=== PATIENT | male | born 1990 | race Caucasian/White ===

== ENCOUNTER 2016-10-17 21:23 | Emergency (ER) | payer BC ==
[~2016-10-17] VITALS: Ht 175.3 cm; Wt 70.3 kg
[2016-10-17] MEDS ORDERED: PANTOPRAZOLE SO40 MG PO (21:39)
--- OUTSIDE RECORDS SUMMARY | 2016-10-17 21:44 | External Medical Summary Rpt ---
Demographics Preferred Language Pashto Marital Status Unknown Oriental Orthodox Affiliation Unknown Race Unknown Ethnic Group Unknown Author Author , BEE GAMBOA Address Unknown Phone Immunization Unable to retrieve immunization data due to connection failure with Immunization Registry. Please try again later.
--- OUTSIDE RECORDS SUMMARY | 2016-10-17 21:44 | External Medical Summary Rpt ---
Author Author MAGGIE Address Unknown Phone [email or web address] Purpose Continuity of Care Document - through 2016
--- OUTSIDE RECORDS SUMMARY | 2016-10-17 21:44 | External Medical Summary Rpt ---
Author Author [employer] Organization [employer] Address Unknown Phone Unavailable Purpose Continuity of Care Document - through 2016
--- OUTSIDE RECORDS SUMMARY | 2016-10-17 21:44 | External Medical Summary Rpt ---
Demographics Preferred Language Greenlandic Marital Status Unknown Orthodoxy Affiliation Unknown Race Unknown Ethnic Group Unknown Author Author , BEE GAMBOA Address Unknown Phone Immunization Unable to retrieve immunization data due to connection failure with Immunization Registry. Please try again later.
--- OUTSIDE RECORDS SUMMARY | 2016-10-17 21:44 | External Medical Summary Rpt ---
Author Author MAGGIE Address Unknown Phone [email or web address] Purpose Continuity of Care Document - through 2016
--- NOTE | 2016-10-17 22:01 | Emergency Room Report ---
History of Present Illness Time Seen by 2124 Presenting Problem in Triage Pt arrived:Walked Presenting Problem:HERE C/O BILATERAL WRIST PAIN. 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 N Clinical Suspician of Infection? N Mental Status: 1 - Regular (Normal Baseline) Sepsis Risk:Low Sepsis Risk Have you (or family members/close friends) recently traveled outside the [place]? N If Yes, where/when: Have you had exposure to infectious disease within the past month? N TB? Other? Specify: Source patient, RN notes reviewed, family, RN/MD Exam Limitations no limitations Comment This is an 26-year-old male patient presenting to the emergency room with bilateral wrist pain after falling off a horse around 8:30 PM tonight. Patient denies any other associated injuries, including head or neck trauma. ALLERGIES Coded Allergies: No Known Allergies (10/17/16) Home Medications Reported Medications Pantoprazole Sodium (Pantoprazole 40MG) 40 MG PO BID History Medical History General CAD? No Angina: No CT: No Hypertension? No Hyperlipidemia? No CHF? No DVT? No PE? No COPD? No Asthma? No Anemia? No GERD? Yes Gastric ulcers? No GI Bleed? No Hernia? No Thyroid Problems? No Hypothyroidism? No CVA? No Seizures? No Diabetes? No Renal Insuffiency? No End Stage Renal Disease? No UTI? No Stones? No BPH? No GB Disease: No Nephritic Syndrome? No Asplenia? No Hepatitis? No Sickle Cell Disease? No Arthritis? No Migraines? No Cataracts? No Glaucoma? No MRSA? No HIV? No TB? No Anxiety? No Depression? No Cancer? No More? No Immunization Hx Ped.Immunizations UTD Yes DT/Tetanus 5-10 Years Ago Surgical Hx Previous Surgery?Y RECONSTRUCTIVE EAR SX X5 T&A ACL RIGHT KNEE WISDOM TEETH Social History Smoking Hx Smoker: Never Smoker Tobacco: No Alcohol Alcohol: Yes Review of Systems All Other Systems Reviewed and Negative Musculoskeletal joint pain (b/l wrist pain) Physical Exam Vital Signs Vital Signs Date Time Temp Pulse Resp B/P Pulse O2 O2 Flow FiO2 Ox Delivery Rate 07/31 2210 98.5 80 20 143/85 100 10/17 2129 98.5 80 20 143/85 100 General Appearance normal appearance, WD/WN, mild distress Respiratory Status Yes: trachea midline, chest symmetrical, non tender chest. No: respiratory distress. Lung Sounds bilateral: normal breath sounds, lungs clear. Cardiovascular normal exam, regular rate/rhythm, no peripheral edema, no gallop, no JVD, no murmur, no rub, normal peripheral pulses Gastrointestinal normal bowel sounds, normal exam, non tender, soft, no organomegaly Extremities normal range of motion, normal inspection, LEFT wrist tender over the LEFT styloid, nontender into anatomical box. RIGHT wrist tender only in the anatomical box. Neurologic alert, cath lab radiological technologist II-XII nml as tested, normal exam, oriented x 3 Mental status normal mood/affect Skin intact, normal color, warm/dry Medical Decision Making LABS/Meds/Orders Pt receiving controlled substance in ED? No Comment Patient instructed to follow-up with one of the orthopedic surgeons listed in discharge instructions in 7-10 days for reevaluation, repeat x-ray of the wrist, in order to rule out a possible navicular fracture. Late entry: 06:45am - radiologist's report noticed, c/w nondisplaced fracture left navicular bone. Instructed nurse (Mariam) to call patient around 8am, noted her to return to the emergency room for splinting of the LEFT wrist as well. Results/Orders Orders Procedure Date/time Status WRIST-3 VIEWS-RT 10/17 2125 Active WRIST-3 VIEWS-LT 10/17 2125 Active XRAY/CT/US XRAY/CT/US 1 XRAY wrist (left) XR interpretation by reviewed by me, discussed w/radiologist Xray Results abnormal Comment See radiologist report consistent with possible LEFT navicular nondisplaced fracture (noticed after patient's discharge home) XRAY/CT/US 2 XRAY wrist (right) XR interpretation by reviewed by me, discussed w/radiologist Xray Results abnormal Comment See radiologist report, normal Procedures Orthopedic/Inj/Splint Ortho Proc/Injections/Splints Risks/benefits discussed with pt/guardian? Yes Hand-Made Type orthoglass Splint volar Pre-Proc Neuro Vasc Exam normal Post-Proc Neuro Vasc Exam normal Departure Departure Time of Disposition 2158 Disposition DC Home or Self Care(routine) Clinical Impression Primary Impression: Right wrist sprain Qualifiers: Encounter type: initial encounter Qualified Code: S63.501A - Unspecified sprain of right wrist, initial encounter Condition STABLE Referrals Rizwan ARMSTRONG,Jimy RAMIREZ MD, FARHANA BERNARD Patient Instructions DI for Wrist Sprain Additional Instructions Please see the orthopedic surgeon in 7-10 days. Please leave the splint on till seen and cleared by on of the orthopedic surgeons lsited above. Alternate Motrin with Tylenol for pain control. Discharge Counseling Counseled pt/family regarding diagnosis, test results, medications/RX, home care, follow up needs Comment Please see the orthopedic surgeon in 7-10 days. Please leave the splint on till seen and cleared by on of the orthopedic surgeons lsited above. Alternate Motrin with Tylenol for pain control. ED Critical Care Critical Care No at [id number]
[2016-10-17 22:10] VITALS: BP 143/85
--- NOTE | 2016-10-17 22:52 | RADIOLOGY REPORT PS360 ---
WRIST-3 VIEWS-LT, WRIST-3 VIEWS-RT Ordering Physician: Aditya Brown MD Patient Age: 26 years: Male HISTORY: PAIN left wrist. TECHNIQUE: -Painful Left wrist:. 3 views -comparison right wrist- 2 views ... LEFT WRIST.-3 views... . There is a lucent line which transverses the waist of the navicular on the frontal and oblique view. This is suspect for a subtle hairline fracture through the waist of the navicular. It at times contour variation in this region can mimic this appearance. This clinical correlation is important Point tenderness specific at the anatomical snuff box could additionally support & confirm a nondisplaced fracture through waist of the navicular. Splinting & Orthopedic follow-up recommended. Remainder the carpals appear intact. Distal radius and ulna intact. Joint spaces well-maintained throughout IMPRESSION: 1. Suspect a nondisplaced hairline fracture passing through the waist of the left navicular. Point tenderness at the anatomical snuff box required to additionally support/& confirm . Splinting with Orthopedic follow-up recommended ... RIGHT WRIST 2 VIEWS.... The comparison right wrist appears intact and within normal limits. A more elongated appearance at the right navicular. Anatomical variant IMPRESSION... Negative right wrist
== END 2016-10-17 22:11 | disposition home or self-care (01) ==
LOC: ER 21:23
DX: S62.002A Unspecified fracture of navicular [scaphoid] bone of left wrist, initial encounter for closed fracture (principal); S63.501A Unspecified sprain of right wrist, initial encounter; V80.010A Animal-rider injured by fall from or being thrown from horse in noncollision accident, initial encounter; Y93.52 Activity, horseback riding; Y92.89 Other specified places as the place of occurrence of the external cause